=== PATIENT | female | born 1980 ===

== ENCOUNTER → 2017-11-14 | Outpatient (CLI) | payer BC ==
--- NOTE | 2017-11-14 17:50 | RAD ---
The examination: Cervical spine, five views History: Neck pain no trauma Findings: Normal appearance of vertebrae, disc spaces, paraspinal soft tissues. Disc spaces are prese rved. Neural foramina are widely patent. The odontoid is symmetric and normal. Impression: No acute or significant abnormality identified. New Reported By:
== END ==
LOC: RAD 17:15
PROVIDERS: ATTEND Internal Medicine
DX: M50.30 Other cervical disc degeneration, unspecified cervical region (principal)
CPT/HCPCS: 72050